=== PATIENT | female | born 1980 | race Caucasian/White ===

== ENCOUNTER → 2017-04-09 | Outpatient (CLI) | payer BC ==
[~2017-04-09] MED LIST: no home meds
--- NOTE | 2017-04-09 11:55 | Discharge Instructions ---
Discharge Instructions Procedure Procedure Date: April 09, 2017. Reason for visit: Left Mass. Discharge Discharge Date: April 09, 2017. Discharge Diagnosis: post left breast ultrasound guided core biopsy Instructions Activity Recommendations: Additional Limitations (see below) Return to School/Work: no limitations Recommended Home Diet: No Limitations Provider Instructions: ACTIVITY RECOMMENDATIONS: * No lifting, pushing, pulling or exercising the affected side for three days. RETURN TO SCHOOL/WORK: * You may return to work/school after the procedure, but do not perform any strenuous activities for 24 to 48 hours. MEDICATIONS: * Tylenol (two 325 mg) every four to six hours if needed for mild pain (if not allergic to Tylenol). DIET: * Resume previous diet. SPECIAL CARE INSTRUCTIONS: * Keep biopsy site dry for 24 hours. May shower after 24 hours, but do not soak (bathe) incision. * May remove Tegaderm (plastic patch) tomorrow AFTER showering. * Leave the steri-strips on for one week. Allow the steri-strips to fall off by themselves. If not off after one week, you may remove them. You may place a Bandaid crosswise over the strips, if desired. * Apply ice 10 minutes on and 10 minutes off as needed. * Wear a bra at bedtime to sleep more comfortably for 2-3 days. * Your referring physician should have the results after approximately 5 to 7 business days. * Call for unusual bleeding, fever, drainage, etc or if you have any questions call [phone] during normal business hours or after hours call Dr Curtis, . FOLLOW UP VISIT: Follow-up with Referring Physician as scheduled. Allergies Coded Allergies: Penicillins (Verified Allergy, Severe, RASH, 12/13/16) Erythromycin (Verified Allergy, Intermediate, GI SYMPTOMS, 12/13/16) Sulfa Antibiotics (Verified Allergy, Intermediate, RASH, 12/13/16) not sure of the reaction [place] Recommendations: Call your doctor if: * Temperature above 101 degrees * Pain not relieved by pain medicine ordered * There is increased drainage or redness from any incision * You have any unanswered questions or concerns. Your Doctors Instructions noted above were prepared by provider Alisa Curtis. Patient Signature Section: Patient Instructions Signature Page [facility] Patient (or Guardian) Signature/Date: I have read and understand the instructions given to me by my caregivers. Caregiver/RN/Doctor Signature/Date: The above-named patient and/or guardian has received patient instructions on this date. + Original Patient Signature Page (only) stays with chart. Please make copy for patient.
--- NOTE | 2017-04-09 14:57 | MAMMOGRAPHY REPORT ---
ULTRASOUND GUIDED BIOPSY LEFT BREAST: 04/09/2017 CLINICAL HISTORY: 36-year-old woman presents for ultrasound guided core biopsy of an indeterminate s olid lobulated 4 mm mass in the 4:00 periareolar left breast. She has a history of left breast DCIS status post lumpectomy. COMPARISON: Comparison is made to exams dated: 04/02/2017 ultrasound, 04/02/2017 mammogram, 09/11/2016 mammogram, 09/11/2016 ultrasound biopsy, 08/29/2016 ultrasound, and 08/29/2016 mammogram - [facility]. PATIENT CONSENT: The procedure, risks and benefits were discussed with the patient and informed writ ten consent was obtained. Specific risks to this procedure include: bleeding, infection, puncture of adjacent structure, nontarget biopsy, sampling error, metal allergy and medication reaction. PROCEDURE DESCRIPTION: A time out was performed and the left breast was agreed as the site of biopsy . The skin was prepped and draped in the usual sterile fashion. The solid lobulated mass in the 4:00 left breast was chosen as the target for biopsy. Subcutaneous and intraparenchymal 1% buffered lido kelly was administered as local anesthesia. A skin incision was made. The incision, 4 samples were taken with a 14 gauge Achieve biopsy device. A metallic marker was placed at the biopsy site. Hemost asis was achieved after manual compression. The patient tolerated the procedure well and there was n o immediate complication. Postprocedure left CC and ML tomosynthesis images were performed. There is a new ribbon-shaped meta llic biopsy marker in the 4:00 middle one third of the left breast, at the site of the biopsied hypo echoic lobulated mass seen on ultrasound. No significant post biopsy hematoma is identified. Pendi ng benign pathology results, would bilateral diagnostic mammograms in 6 months with the addition of breast MRI either now or 6 months from now given the personal history of left breast DCIS status pos t lumpectomy, no radiation therapy. IMPRESSION: ULTRASOUND GUIDED BIOPSY Status post ultrasound guided core needle biopsy of an indeterminate solid mass in the 4:00 left so ast, with biopsy marker placed at the site. Pending benign pathology results, would bilateral diagnostic mammograms in 6 months with the additio n of breast MRI either now or 6 months from now given the personal history of left breast DCIS statu s post lumpectomy, no radiation therapy. Alisa Curtis M.D. ay/:04/09/2017 12:18:14 Attending Technologist: Prabha GEE(R)(M), [facility] Tax Compliance Agent: Dr. Alisa Curtis, [facility]
== END | disposition home or self-care (01) ==
LOC: C.MAMM 11:05
PROVIDERS: ATTEND Surgery
DX: N63 Unspecified lump in breast (principal)

== ENCOUNTER → 2017-08-30 | Outpatient (CLI) | payer BC ==
--- NOTE | 2017-08-30 13:44 | MAMMOGRAPHY REPORT ---
BILATERAL DIGITAL DIAGNOSTIC MAMMOGRAM TOMOSYNTHESIS WITH CAD AND TARGETED LEFT ULTRASOUND: 7 CLINICAL HISTORY: History of left breast DCIS status post lumpectomy. The patient did not undergo ra diation therapy. The patient also underwent ultrasound-guided core needle biopsy of a left 4:[address] mass March 2017 which yielded benign pathology. The patient reports no current complaints. TECHNIQUE: Breast tomosynthesis in addition to standard 2D mammography was performed. Current study was also evaluated with a Computer Aided Detection (CAD) system. Bilateral CC and MLO 2-D and tomosy nthesis images and spot magnification left CC and ML views were obtained. COMPARISON: Comparison is made to exams dated: 04/09/2017 ultrasound biopsy, 04/09/2017 mammogram, 03/12 ultrasound, 04/02/2017 mammogram, 09/11/2016 mammogram, and 09/11/2016 ultrasound biopsy - [facility]. BREAST COMPOSITION: The tissue of both breasts is extremely dense, which lowers the sensitivity of m ammography. FINDINGS: Again noted are post surgical changes in the left upper outer quadrant from prior lumpecto my, including stable architectural distortion at the lumpectomy bed. A linear scar marker denotes a scar on the left upper outer breast. A rounded 15 mm asymmetry is seen at the lumpectomy bed on the cc tomosynthesis images, which could represent post surgical changes although ultrasound was performe d. A biopsy marker clip is again noted in the left 4:00 breast from prior benign ultrasound guided b iopsy. Spot magnification views of the lumpectomy bed demonstrate no suspicious masses or clusters o f microcalcifications. The remainder of both breasts are stable compared to prior exams, without pravin picious masses, calcifications, or areas of architectural distortion noted. Targeted ultrasound was performed of the lumpectomy bed in the left 3:00 breast. There are ill-defin ed hypoechoic regions at the surgical bed, consistent with normal post surgical changes. At the surg ical bed there is also a circumscribed round anechoic mass with a thin internal septation measuring 6 x 6 x 7 mm, which is benign and may represent a small post surgical fluid collection or a cyst. Adj acent to this is also an oval anechoic benign cyst which measures 3 x 4 mm. No suspicious solid mass es were evident. IMPRESSION: ACR-BI-RADS CATEGORY 3: PROBABLY BENIGN, TARGETED ULTRASOUND ACR-BI-RADS CATEGORY 3: PRO BABLY BENIGN Expected post surgical changes in the left breast from prior lumpectomy, without mammographic evidenc e of malignancy in either breast. Recommend follow-up diagnostic tomosynthesis mammograms of the lef t breast in 6 months to reevaluate the left breast posttreatment changes. Additionally, given the pe rsonal history of left breast DCIS at a young age and given extremely dense breast parenchyma mammogr aphically, consider additional screening with breast MRI. The patient has been verbally notified of the results. Approximately 10% of breast cancers are not detected with mammography. A negative mammographic report should not delay biopsy if a clinically suggestive mass is present. Leighann Martinez M.D. ah/:08/30/2017 12:00:40 Tunnel Man: Prabha GEE(Pamela)(Gila), [facility] letter sent: Personal History 3 BI-RADS Code: ACR-BI-RADS Category 3: Probably Benign Ultrasound BI-RADS: ACR-BI-RADS Category 3: Pr obably Benign
== END | disposition home or self-care (01) ==
LOC: C.MAMM 09:20
PROVIDERS: ATTEND Surgery
DX: Z08 Encounter for follow-up examination after completed treatment for malignant neoplasm (principal); Z85.3 Personal history of malignant neoplasm of breast; Z98.890 Other specified postprocedural states

== ENCOUNTER → 2017-10-22 | Outpatient (CLI) | payer BC ==
--- NOTE | 2017-10-22 10:11 | Discharge Instructions ---
Discharge Instructions Procedure Procedure Date: Oct 22, 2017. Reason for visit: 2ND Lk Us-Pos Bx Rt Masslike Enhancements/Lt Foci. Discharge Discharge Date: Oct 22, 2017. Discharge Diagnosis: post bilateral breast ultrasound guided core biopsies Instructions Activity Recommendations: Additional Limitations (see below) Return to School/Work: no limitations Recommended Home Diet: No Limitations Provider Instructions: ACTIVITY RECOMMENDATIONS: * No lifting, pushing, pulling or exercising the affected side for three days. RETURN TO SCHOOL/WORK: * You may return to work/school after the procedure, but do not perform any strenuous activities for 24 to 48 hours. MEDICATIONS: * Tylenol (two 325 mg) every four to six hours if needed for mild pain (if not allergic to Tylenol). DIET: * Resume previous diet. SPECIAL CARE INSTRUCTIONS: * Keep biopsy site dry for 24 hours. May shower after 24 hours, but do not soak (bathe) incision. * May remove Tegaderm (plastic patch) tomorrow AFTER showering. * Leave the steri-strips on for one week. Allow the steri-strips to fall off by themselves. If not off after one week, you may remove them. You may place a Bandaid crosswise over the strips, if desired. * Apply ice 10 minutes on and 10 minutes off as needed. * Wear a bra at bedtime to sleep more comfortably for 2-3 days. * Your referring physician should have the results after approximately 5 to 7 business days. * Call for unusual bleeding, fever, drainage, etc or if you have any questions call [phone] during normal business hours or after hours call Dr Curtis, . FOLLOW UP VISIT: Follow-up with Referring Physician as scheduled. Allergies Coded Allergies: Penicillins (Verified Allergy, Severe, RASH, 12/13/16) Erythromycin (Verified Allergy, Intermediate, GI SYMPTOMS, 12/13/16) Sulfa Antibiotics (Verified Allergy, Intermediate, RASH, 12/13/16) not sure of the reaction [facility] Recommendations: Call your doctor if: * Temperature above 101 degrees * Pain not relieved by pain medicine ordered * There is increased drainage or redness from any incision * You have any unanswered questions or concerns. Your Doctors Instructions noted above were prepared by provider Alisa Curtis. Patient Signature Section: Patient Instructions Signature Page Kayleybenjy Ron Patient (or Guardian) Signature/Date: I have read and understand the instructions given to me by my caregivers. Caregiver/RN/Doctor Signature/Date: The above-named patient and/or guardian has received patient instructions on this date. + Original Patient Signature Page (only) stays with chart. Please make copy for patient.
--- NOTE | 2017-10-22 15:10 | MAMMOGRAPHY REPORT ---
ULTRASOUND GUIDED BIOPSY: 10/22/2017 CLINICAL HISTORY: Small indeterminate masses in the 1:00 left breast and 11:00 right breast thought t o correlate with enhancing foci/masses seen on recent breast MRI. Patient presents for bilateral sec ond look ultrasound and bilateral ultrasound-guided core biopsy. Please refer to the report from right breast ultrasound guided core biopsy performed at the same time for full detail. IMPRESSION: ULTRASOUND GUIDED BIOPSY Please refer to the report from right breast ultrasound guided core biopsy performed at the same time for full detail. Alisa Curtis M.D. ay/:10/22/2017 10:13:30 Sign Language Instructor: Mora GEE(Pamela)(M), [facility]
--- NOTE | 2017-10-22 15:10 | MAMMOGRAPHY REPORT ---
ULTRASOUND GUIDED BIOPSY RIGHT BREAST: 10/22/2017 CLINICAL HISTORY: 37-year-old woman with a personal history of left breast DCIS status post lumpectom y. No radiation therapy. Also prior benign ultrasound-guided core biopsy in the left 4:00 breast pe rformed in March 2017. A recent bilateral breast MRI demonstrated clumped non-mass enhancement in the left upper outer quadr ant posterior and superior to the surgical site. In the right breast there was a focus/mass in the c entral retroareolar right breast measuring 3.8 x 4.6 x 5.0 mm and another area of somewhat masslike e nhancement in the 11 to 12:00 far posterior right breast measuring 6.6 x 6.5 mm, with suspicious asso ciated kinetics. Patient presented for bilateral second look ultrasound, possible ultrasound-guided core needle biopsies. Abnormalities were seen in the 1:00 left breast and 11:00 right breast for whi ch core biopsies were performed. COMPARISON: Comparison is made to exams dated: 10/22/2017 ultrasound, 10/08/2017 breast MRI, 017 mammogram, 08/30/2017 ultrasound, 04/09/2017 ultrasound biopsy, and 04/09/2017 mammogram - [facility]. PATIENT CONSENT: The procedure, risks and benefits were discussed with the patient and informed conse nt was obtained both verbally and in writing. Specific risks to this procedure include: bleeding, in fection, puncture of adjacent structure, nontarget biopsy, sampling error, pain, metal allergy and me dication reaction. PROCEDURE DESCRIPTION: A time out was performed and both breasts were agreed as sites for biopsy. Fi rst, the skin of the right breast was prepped and draped in the usual sterile fashion. The microlobul ated hypoechoic 4 mm mass in the 11:00 right breast was chosen as the target for biopsy. Subcutaneous and intraparenchymal 1% buffered lidocaine, with and without epinephrine, was administered as local anesthesia. A skin incision was made. Through the incision, 6 samples were taken with a 14 gauge Ach ieve biopsy device. A ribbon shaped metallic marker was placed at the biopsy site. Hemostasis was ach ieved after manual compression. The patient tolerated the procedure well and there was no immediate c omplication. Then, the skin of the left breast was prepped and draped in the usual sterile fashion. The small vas cular 3.3 x 4.9 mm mass in the 1:00 axis, 4 cm from the nipple was identified and targeted for biopsy . Additional subcutaneous and intraparenchymal 1% buffered lidocaine, with and without epinephrine w as administered as local anesthesia. A skin incision was made. Through the incision, 4 samples were obtained with a 14-gauge achieve biopsy device. A wing shaped metallic marker was placed at the bio psy site. The patient tolerated the procedure well and there was no immediate competition. Hemostas is was achieved after several minutes of manual compression. All of the samples were sent [facility] hology department in an appropriately labeled containers. Post procedure CC and ML views of each breast were obtained. A new ribbon-shaped biopsy marker clip is identified in the 11:00 to 12:00 right breast, and a new ring-shaped biopsy marker clip is seen in the left breast 1:00 posterior axis. No significant postbiopsy hematoma is identified in either so ast. Pathology is pending. IMPRESSION: ULTRASOUND GUIDED BIOPSY Status post bilateral breast ultrasound guided core needle biopsy of indeterminate solid appearing ma ss is thought to correlate with MRI findings. The patient will receive notification of the biopsy results from her referring physician. Pending pathology results, further recommendations will be made regarding the 6 mm masslike enhanceme nt in the 12:00 posterior right breast which was not identified on targeted second look ultrasound. Alisa Curtis M.D. ay/:10/22/2017 12:44:31 Research Project Coordinator: Mora RAMÍREZ)(Gila), [facility]
--- NOTE | 2017-10-22 15:11 | MAMMOGRAPHY REPORT ---
SECONDLOOK ULTRASOUND OF BOTH BREASTS: 10/22/2017 CLINICAL HISTORY: 37-year-old woman with a personal history of left breast DCIS status post lumpectom y. No radiation therapy. Also prior benign ultrasound-guided core biopsy in the left 4:00 breast pe rformed in March 2017. A recent bilateral breast MRI demonstrated clumped non-mass enhancement in the left upper outer quadr ant posterior and superior to the surgical site. In the right breast there was a focus/mass in the c entral retroareolar right breast measuring 3.8 x 4.6 x 5.0 mm and another area of somewhat masslike e nhancement in the 11 to 12:00 far posterior right breast measuring 6.6 x 6.5 mm, with suspicious asso ciated kinetics. Patient presents for bilateral second look ultrasound, possible ultrasound-guided c ore needle biopsies. COMPARISON: Comparison is made to exams dated: 10/08/2017 breast MRI, 08/30/2017 mammogram, 7 mammogram, 08/29/2016 ultrasound, and 08/29/2016 mammogram - [facility]. FINDINGS: Real-time high-resolution sonographic evaluation was performed throughout the left upper o uter quadrant and also in the right breast particular attention to the retroareolar, 11:00, 12:00 and 1:00 axes. Throughout the left upper outer quadrant, there are numerous nodular hypoechoic masslike areas scatte red throughout and also numerous scattered anechoic benign cysts. The benign cysts are identified in the 2:00 axis, 1 cm from the nipple measuring 6.1 x 6.7 mm, and 3.8 x 2.0 mm. These are benign give n the cystic nature and prominent posterior acoustic enhancement. The hypoechoic solid appearing mas ses scattered in the left breast are most prominent in the 12:00 axis, 1 cm from the nipple, measurin g 4.8 x 3.0 x 4.6 mm, adjacent to the pectoralis muscle, in the 1:00 axis, 4 cm from the nipple measu ring 3.3 x 2.2 x 4.9 mm and adjacent slightly deeper mass in the 1:00 axis, 4 cm from the nipple cale uring 4.6 x 3.2 x 5.2 mm. Other hypoechoic nodular areas are identified in the left 2:00 breast, 2 c m from the nipple, measuring 6.4 x 2.4 and 3.3 x 2.6 mm. All of these nodular areas likely correspon d to the clumped enhancement with washout kinetics seen on MRI and further evaluation with ultrasound -guided core biopsy of the most vascular nodular area in the 1:00 axis, 4 cm from the nipple is recom mended. In the right breast 11:00 axis, 1 cm from the nipple, there is a very subtle mass like area in the ba ckground of multiple prominent tubular milk ducts. The margins are indistinct and microlobulated and this hypoechoic possible mass measures 3.7 x 4.0 x 3.8 mm. This may possibly correspond to the MRI finding in the central/retroareolar breast given it is located middle depth between skin and pectoral is muscle and the size measurements are somewhat similar. Therefore definitive characterization with ultrasound guided core biopsy is also recommended in the 11:00 right breast. No other discrete tessie d or cystic mass was seen in the right breast with particular attention to the 12:00 posterior breast to correspond with the other described area of masslike enhancement seen on recent MRI. IMPRESSION: ACR BI-RADS CATEGORY 4: SUSPICIOUS - FOLLOW-UP RECOMMENDED 1. There are numerous hypoechoic nodular subcentimeter masses in the 12:00, 1:00 and 2:00 axes of th e left breast on ultrasound that may correlate with the clumped enhancement seen on recent breast MRI . Ultrasound guided core biopsy of the most vascular mass in the 1:00 axis is recommended. 2. There is a very subtle possible 4 mm mass in the 11:00 right breast, 1 cm from the nipple which m ay correspond to an area of masslike enhancement seen on recent breast MRI. Ultrasound-guided core b iopsy is also recommended of this area in the right breast. 3. No sonographic correlate to another described area of masslike enhancement in the far posterior 1 2:00 right breast. I will defer further workup recommendations until pathology results are available from both ultrasound-guided core biopsies performed today. These results and recommendations were discussed with the patient at the time of the exam. [facility] breast ultrasound guided core biopsies were performed during the same appointment and please ref er to a separate report for full detail. Alisa Curtis M.D. ay/:10/22/2017 12:39:40 Medical Assistant Secretary: Mora Arenas RT(R)(M), [facility] letter sent: Abnormal 4/5 BI-RADS Code: ACR BI-RADS Category 4: Suspicious
--- NOTE | 2017-10-22 15:12 | MAMMOGRAPHY REPORT ---
BILATERAL DIGITAL DIAGNOSTIC MAMMOGRAM: 10/22/2017 CLINICAL HISTORY: Status post bilateral breast ultrasound guided core biopsy in the right 11:00 and l eft 1:00 axes. Please refer to the report from right breast ultrasound guided core biopsy performed at the same time for full detail. IMPRESSION: POST PROCEDURE IMAGING FOR MARKER PLACEMENT Please refer to the report from right breast ultrasound guided core biopsy performed at the same time for full detail. Approximately 10% of breast cancers are not detected with mammography. A negative mammographic report should not delay biopsy if a clinically suggestive mass is present. Alisa uCrtis M.D. ay/:10/22/2017 10:56:40 Restaurant Floor Manager: Mora GEE(Pamela)(M), [facility] BI-RADS Code: Post Procedure Imaging For Marker Placement
== END | disposition home or self-care (01) ==
LOC: C.MAMM 08:46
PROVIDERS: ATTEND Surgery
DX: N63.10 Unspecified lump in the right breast, unspecified quadrant (principal); N63.20 Unspecified lump in the left breast, unspecified quadrant; D24.1 Benign neoplasm of right breast; N60.11 Diffuse cystic mastopathy of right breast; R59.9 Enlarged lymph nodes, unspecified